=== PATIENT | male | born 1995 | race Caucasian/White ===

== ENCOUNTER 2017-09-19 11:55 | Emergency (ER) | payer OTHER ==
[~2017-09-19] VITALS: Ht 167.6 cm; Wt 74.4 kg
[~2017-09-19 11:55] MED LIST: CONSTULOSE10 GM/15 M PO; DONNATAL1 TABLET PO; FLOVENT 44120 INHALA IH; HYDROCODON-ACE1 EAC7 PO; NASACORT10.8 ML BOTH NARES; ZYRTEC10 M2 PO
[2017-09-19 13:32] LABS: HEMATOCRIT 49.2 % (38.0-50.0); HEMOGLOBIN 16.7 G/DL (12.5-16.6); MCH 31.6 PG (29.0-34.0); MCHC 33.9 G/DL (30.0-36.0); PLATELET COUNT 219 K/uL (156-360); RBC DIS.WIDTH-CV 11.9 % (11.8-14.6); RBC DIS.WIDTH-SD 41.2 % (39-53); RED BLOOD COUNT 5.29 M/uL (4.00-5.50); WHITE BLOOD COUNT 6.5 K/uL (4.1-10.2)
[2017-09-19 13:42] LABS: CHLORIDE 107 mEq/L (99-109); POTASSIUM 4.6 mEq/L (3.7-5.4); SODIUM 143 mEq/L (136-147)
[2017-09-19 13:44] LABS: GLUCOSE 89 mg/dL (70-99)
[2017-09-19 13:48] LABS: CREATININE 0.8 mg/dL (0.6-1.3); GFR ESTIMATE (CALCULATED) > 59 mL/min/ (58.99-99999)
[2017-09-19 13:49] LABS: UREA NITROGEN (BUN) 20 mg/dL (9-23)
[2017-09-19 14:48] LABS: ERTH.SED.RATE 11 MM/HR (0-15)
[2017-09-19] MEDS ORDERED: FLAGYL500 MG PO (14:51)
[2017-09-19 15:05] VITALS: BP 124/77
== END 2017-09-19 15:05 | disposition home or self-care (01) ==
LOC: EME 11:55
PROVIDERS: Nurse Practitioner Family
DX: S61.412A Laceration without foreign body of left hand, initial encounter (principal); W45.0XXA Nail entering through skin, initial encounter; M79.1 Myalgia; M25.641 Stiffness of right hand, not elsewhere classified; M25.642 Stiffness of left hand, not elsewhere classified; M25.631 Stiffness of right wrist, not elsewhere classified; M25.632 Stiffness of left wrist, not elsewhere classified; J45.909 Unspecified asthma, uncomplicated; Z88.0 Allergy status to penicillin; Z88.2 Allergy status to sulfonamides
CPT/HCPCS: 80048; 85027; 85651; 99281; 99284